=== PATIENT | male | born 1985 | race Caucasian/White ===

== ENCOUNTER 2019-01-19 13:32 | Emergency (ER) | payer OTHER ==
[~2019-01-19] VITALS: Ht 193 cm; Wt 139.7 kg
[2019-01-19 13:37] VITALS: BP 168/98; Ht 193 cm; Wt 139.7 kg
== END 2019-01-19 14:42 | disposition home or self-care (01) ==
LOC: ED 13:32
DX: L05.01 Pilonidal cyst with abscess (principal)
CPT/HCPCS: J0696

== ENCOUNTER 2020-05-04 04:03 | Emergency (ER) | payer OTHER ==
[~2020-05-04] VITALS: Ht 193 cm; Wt 138.3 kg
[2020-05-04 04:08] VITALS: Ht 193 cm; Wt 138.3 kg
[2020-05-04 06:59] VITALS: BP 104/99
== END 2020-05-04 06:50 | disposition home or self-care (01) ==
LOC: ED 04:03
DX: S76.122A Laceration of left quadriceps muscle, fascia and tendon, initial encounter (principal); S00.33XA Contusion of nose, initial encounter; S00.81XA Abrasion of other part of head, initial encounter; F10.129 Alcohol abuse with intoxication, unspecified; Y90.9 Presence of alcohol in blood, level not specified; W22.01XA Walked into wall, initial encounter; Y93.89 Activity, other specified; Y92.89 Other specified places as the place of occurrence of the external cause; Y99.8 Other external cause status
CPT/HCPCS: 82962; 90715